=== PATIENT | female | born 1965 | race African-American/Black ===

== ENCOUNTER 2017-02-17 21:38 | Inpatient (IN) | payer OTHER ==
[~2017-02-17] VITALS: Ht 177.8 cm; Wt 141.9 kg
[2017-02-17 22:25] LABS: BASOPHIL COUNT 0.1 K/uL (0-0.1); EOSINOPHIL (%) 1.2 % (0-5); EOSINOPHIL COUNT 0.1 K/uL (0-0.3); IMMATURE GRANULOCYTE (%) 0.1 % (0.0-0.7); INSTRUMENT ABS NEUTROPHIL CT 3.4 K/uL; LYMPHOCYTE COUNT 2.7 K/uL (1.0-2.8); MCH 21.3 PG (29.0-34.0); MCHC 32.3 G/DL (30.0-36.0); MONOCYTE (%) 7.5 % (3-12); MONOCYTE COUNT 0.5 K/uL (0-0.8); NEUTROPHIL (%) 50.6 % (45-76); NEUTROPHIL COUNT 3.4 K/uL (1.8-6.4); NRBC (%) 0.3 /100 WBC (0-0); RBC DIS.WIDTH-CV 21.5 % (11.8-14.6); RBC DIS.WIDTH-SD 47.7 % (39-53); RED BLOOD COUNT 5.91 M/uL (3.80-5.20); WHITE BLOOD COUNT 6.8 K/uL (4.1-10.2)
[2017-02-17 22:31] LABS: CHLORIDE 107 mEq/L (99-109); POTASSIUM 3.7 mEq/L (3.7-5.4); SODIUM 139 mEq/L (136-147)
[2017-02-17 22:32] LABS: D-DIMER ELISA 0.96 mg/L FEU (< 0.57)
[2017-02-17 22:33] LABS: GLUCOSE 103 mg/dL (70-99)
[2017-02-17 22:34] LABS: ANION GAP 9 MEQ/L (2-14)
[2017-02-17 22:35] LABS: TOTAL BILIRUBIN 1.6 mg/dL (0.0-1.0)
[2017-02-17 22:37] LABS: ALKALINE PHOSPHATASE 79 IU/L (3-129); GFR ESTIMATE (CALCULATED) > 59 mL/min/
[2017-02-17 22:38] LABS: UREA NITROGEN (BUN) 20 mg/dL (9-23)
[2017-02-17 22:41] LABS: TROP-I INTERPRETATION NEGATIVE; TROPONIN-I 0.04 ng/mL (0.0-0.30)
[2017-02-17 22:55] LABS: ANISOCYTOSIS 3+; HYPOCHROMASIA 1+; MACROCYTES 3+; OVALOCYTES 1+; PLAT.SUFFICIENCY ADEQUATE; PLATELET COUNT 251 K/uL (156-360); SCHISTOCYTES 1+; TARGET CELLS 3+
[2017-02-18] MEDS ORDERED: LISINOPRIL20 MG PO (00:53)
[2017-02-18] MEDS ORDERED: FUROSEMIDE40 MG PO (00:54)
[2017-02-18] MEDS ORDERED: SENNA8.6 MG PO (00:54)
[2017-02-18] MEDS ORDERED: LO-DOSE ASPIRIN81 M2 PO (00:54)
[2017-02-18] MEDS ORDERED: METOCLOPRAMIDE10 MG PO (00:54)
[2017-02-18] MEDS ORDERED: VENTOLIN HFA18 GM IH (00:55)
[2017-02-18] MEDS ORDERED: IRON325 M1 PO (00:55)
[2017-02-18] MEDS ORDERED: PROTONIX40 MG PO (00:55)
[2017-02-18] MEDS ORDERED: METOPROLOL SUCC50 MG PO (00:56)
[2017-02-18 05:29] VITALS: BP 161/91
[2017-02-18 07:27] VITALS: BP 154/89
[2017-02-18 12:36] VITALS: BP 163/88
[2017-02-18 15:38] VITALS: BP 150/85
== END 2017-02-18 18:19 | disposition home or self-care (01) | DRG 292 ==
LOC: EME 21:38 → EDOF 02-18 03:41 → 2EAST 02-18 05:25
PROVIDERS: Emergency Medicine
DX: I50.23 Acute on chronic systolic (congestive) heart failure (principal); J44.1 Chronic obstructive pulmonary disease with (acute) exacerbation; J90 Pleural effusion, not elsewhere classified; Z68.41 Body mass index [BMI] 40.0-44.9, adult; I10 Essential (primary) hypertension; I44.4 Left anterior fascicular block; Z87.891 Personal history of nicotine dependence; I51.7 Cardiomegaly; R59.9 Enlarged lymph nodes, unspecified; E87.70 Fluid overload, unspecified; K31.84 Gastroparesis; E66.01 Morbid (severe) obesity due to excess calories; R00.0 Tachycardia, unspecified; Z91.14 Patient's other noncompliance with medication regimen; Z82.49 Family history of ischemic heart disease and other diseases of the circulatory system
CPT/HCPCS: 71020; 71275; 80053; 83880; 84484; 85025; 85379; 93005; 93306; 94640; 94640 76; 99202; 99281; 99284; J1650; J1940; J2920; J2930

== ENCOUNTER 2017-03-26 16:04 | Inpatient (IN) | payer OTHER ==
[~2017-03-26] VITALS: Ht 177.8 cm; Wt 132.9 kg
[~2017-03-26 16:04] MED LIST: FUROSEMIDE40 MG PO; IRON325 M1 PO; LISINOPRIL20 MG PO; LO-DOSE ASPIRIN81 M2 PO; METOCLOPRAMIDE10 MG PO; METOPROLOL SUCC50 MG PO; PROTONIX40 MG PO; SENNA8.6 MG PO; VENTOLIN HFA18 GM IH
[2017-03-26 17:57] LABS: HEMATOCRIT 42.6 % (36.0-46.0); MCH 21.8 PG (29.0-34.0); MCHC 32.4 G/DL (30.0-36.0); MCV 67.4 FL (83-99); PLATELET COUNT 197 K/uL (156-360); RBC DIS.WIDTH-CV 19.6 % (11.8-14.6); RED BLOOD COUNT 6.32 M/uL (3.80-5.20); WHITE BLOOD COUNT 5.8 K/uL (4.1-10.2)
[2017-03-26 18:00] LABS: CHLORIDE 105 mEq/L (99-109)
[2017-03-26 18:01] LABS: POTASSIUM 3.5 mEq/L (3.7-5.4); SODIUM 140 mEq/L (136-147)
[2017-03-26 18:02] LABS: GLUCOSE 89 mg/dL (70-99)
[2017-03-26 18:04] LABS: ANION GAP 11 MEQ/L (2-14)
[2017-03-26 18:06] LABS: GFR ESTIMATE (CALCULATED) > 59 mL/min/
[2017-03-26 18:07] LABS: UREA NITROGEN (BUN) 15 mg/dL (9-23)
[2017-03-26 18:35] LABS: TROP-I INTERPRETATION NEGATIVE; TROPONIN-I 0.03 ng/mL (0.0-0.30)
[2017-03-26 18:36] LABS: TOTAL BILIRUBIN 2.2 mg/dL (0.0-1.0)
[2017-03-26 18:37] LABS: ALKALINE PHOSPHATASE 93 IU/L (3-129)
[2017-03-26 18:40] LABS: DIRECT BILIRUBIN 1.2 mg/dL (0.0-0.3)
[2017-03-26 18:41] LABS: LIPASE 17 U/L (1.0-51.0)
[2017-03-26 20:14] LABS: MAGNESIUM 1.8 mg/dL (1.3-2.7)
[2017-03-26 20:45] VITALS: BP 155/96
[2017-03-26 21:18] LABS: ADD MIUA? NO; BILIRUBIN NEGATIVE; BLOOD NEGATIVE; COLOR STRAW ((YELLOW)); GLUCOSE (STRIP) NEGATIVE; KETONES NEGATIVE; LEUKOCYTES NEGATIVE; NITRITE NEGATIVE; PROTEIN (STRIP) NEGATIVE; SPECIFIC GRAVITY 1.003 (1.000-1.030); UCUL ADDED? NO; UROBILINOGEN 0.2 MG/DL (0.2-1.0)
[2017-03-26 21:42] LABS: AMPHETAMINES QUANT VALUE 0 NG/ML; BARBITUATES QUANT VALUE 0 NG/ML; BENZODIAZEPINES QUANT VALUE 0 NG/ML; BENZODIAZEPINES, URINE SCREEN Negative (200 ng/mL); MARIJUANA QUANT VALUE 0 NG/ML; OPIATES QUANTITATIVE VALUE 0 NG/ML; PHENCYCLIDINE QUANT VALUE 0 NG/ML
[2017-03-26 23:35] VITALS: BP 146/98
[2017-03-27 03:52] VITALS: BP 149/96
[2017-03-27 07:00] VITALS: BP 119/61
[2017-03-27 07:25] LABS: ANION GAP 11 MEQ/L (2-14); CHLORIDE 107 MEQ/L (99-109); GFR ESTIMATE (CALCULATED) > 59 mL/min/; GLUCOSE 106 mg/dL (70-99); MAGNESIUM 1.9 mg/dl (1.3-2.7); SAMPLE HEMOLYSIS CHECK 0; SAMPLE ICTERIC CHECK 0; SAMPLE LIPEMIA CHECK 0; SODIUM 142 MEQ/L (136-147); UREA NITROGEN (BUN) 15 mg/dL (9-23)
[2017-03-27 07:28] LABS: POTASSIUM 4.5 MEQ/L (3.7-5.4)
[2017-03-27 11:25] VITALS: BP 125/83
[2017-03-27 16:30] VITALS: BP 119/82
[2017-03-27 19:15] VITALS: BP 131/89
[2017-03-28 00:10] VITALS: BP 138/94
[2017-03-28 05:03] VITALS: BP 126/87
[2017-03-28] MEDS ORDERED: METOPROLOL SUCC50 MG PO (07:55)
[2017-03-28] MEDS ORDERED: IRON325 M1 PO (07:55)
[2017-03-28] MEDS ORDERED: VENTOLIN HFA18 GM IH (07:55)
[2017-03-28] MEDS ORDERED: LISINOPRIL20 MG PO (07:56)
[2017-03-28] MEDS ORDERED: LO-DOSE ASPIRIN81 M2 PO (07:56)
[2017-03-28] MEDS ORDERED: FUROSEMIDE40 MG PO (07:56)
[2017-03-28 09:27] VITALS: BP 129/73
[2017-03-28] MEDS ORDERED: BENADRYL50 MG PO (09:44)
[2017-03-28] MEDS ORDERED: PROTONIX40 MG PO (09:44)
[2017-03-28] MEDS ORDERED: METOCLOPRAMIDE10 MG PO (09:44)
[2017-03-28] MEDS ORDERED: SENNA8.6 MG PO (09:44)
[2017-03-28 12:21] VITALS: BP 131/88
== END 2017-03-28 14:21 | disposition home or self-care (01) | DRG 292 ==
LOC: EME 16:04 → EDOF 19:28 → 4EAST 20:16
PROVIDERS: Physician Assistant Medical
PROC: 5A09357 Assistance with Respiratory Ventilation, Less than 24 Consecutive Hours, Continuous Positive Airway Pressure (ICD-10-PCS; principal; 2017-03-26)
DX: I11.0 Hypertensive heart disease with heart failure (principal); I50.23 Acute on chronic systolic (congestive) heart failure; I42.0 Dilated cardiomyopathy; I27.2 Other secondary pulmonary hypertension; E87.6 Hypokalemia; G47.33 Obstructive sleep apnea (adult) (pediatric); K31.84 Gastroparesis; R09.02 Hypoxemia; F41.9 Anxiety disorder, unspecified; I08.3 Combined rheumatic disorders of mitral, aortic and tricuspid valves; R00.0 Tachycardia, unspecified; F32.9 Major depressive disorder, single episode, unspecified; E66.01 Morbid (severe) obesity due to excess calories; Z91.19 Patient's noncompliance with other medical treatment and regimen; Z59.0 Homelessness; Z87.891 Personal history of nicotine dependence; Z79.82 Long term (current) use of aspirin; Z82.49 Family history of ischemic heart disease and other diseases of the circulatory system; Z87.11 Personal history of peptic ulcer disease; Z91.14 Patient's other noncompliance with medication regimen; Z68.41 Body mass index [BMI] 40.0-44.9, adult
CPT/HCPCS: 71020; 76705; 80048; 80076; 80306 90; 81003; 83690; 83735; 83880; 84484; 85027; 93005; 94640; 94640 76; 94660; 99202; 99281; 99284; J1650; J1940